=== PATIENT | female | born 1980 | race Caucasian/White ===

== ENCOUNTER 2019-01-14 08:02 | Outpatient (CLI) | payer OTHER, SELFPAY ==
[2019-01-14 10:09] LABS: Calculated LDL 129 mg/dL; Cholesterol 202 mg/dL (50-200); HDL Cholesterol 52 mg/dL (40-60); TSH (W/Ref FT4) 5.28 uIU/mL (0.358-3.74); Triglyceride 105 mg/dL (30-150)
[2019-01-14 12:11] LABS: FREE T4 0.96 ng/dL (0.76-1.46)
== END 2019-01-14 08:22 ==
PROVIDERS: PCP Family Medicine; Visit Provider Family Medicine
DX: E03.9 Hypothyroidism, unspecified (principal); R74.8 Abnormal levels of other serum enzymes
CPT/HCPCS: 36415; 80061; 83721; 84439; 84443

== ENCOUNTER 2019-03-04 15:10 | Outpatient (CLI) | payer OTHER, SELFPAY | END 2019-03-04 15:30 | PROVIDERS: PCP Family Medicine; Visit Provider Family Medicine | DX: E03.9 Hypothyroidism, unspecified (principal) | CPT/HCPCS: 36415; 84443 ==

== ENCOUNTER 2020-07-03 22:09 | Outpatient (REF) | payer OTHER, SELFPAY ==
[2020-07-04 20:40] LABS: COVID-19 RT-PCR UVMMC Result Negative (Negative)
== END 2020-07-03 22:29 ==
LOC: LBN 22:09
PROVIDERS: PCP Family Medicine; Visit Provider Physician Assistant
DX: J02.9 Acute pharyngitis, unspecified (principal)
CPT/HCPCS: U0003; 87070

== ENCOUNTER 2020-12-28 16:06 | Outpatient (REF) | payer OTHER, SELFPAY ==
--- NOTE | 2020-12-28 14:50 | PAPFT_PTH ---
PATIENT: Carol Echols LOC: [facility] U#:[id number] AGE/SX: 40/F ROOM: RE12/28/[address]: Kelley Porter MD : [id number] BED: DIS: 12/28/2020 SPEC #: [id number] RECD: 12/28/20 18:32 STATUS: DEEPALI REEnriqueta #: [id number] MDAISON: 12/28/20 14:[address]: Kelley Porter DEPT: [facility] Cytology RECD BY: Rosie Robb ENTERED: 12/28/20 18:32 SP TYPE: PAPFT KARLY DR: Johnny Nguyen MD Tissues: 1 - CX/ENDOCX FOR PAP SMEARS Procedures: PAP THIN PREP/[facility] Screening HPV DNA PROBE Comments: [id number]
[2021-01-05 12:50] LABS: HSV 1 DNA Result Negative (Negative); HSV 2 DNA Result Negative (Negative)
== END 2020-12-28 16:07 | disposition home or self-care (01) ==
LOC: LBN 16:06
PROVIDERS: PCP Family Medicine; Visit Provider Obstetrics & Gynecology
DX: Z12.4 Encounter for screening for malignant neoplasm of cervix (principal); Z11.51 Encounter for screening for human papillomavirus (HPV); N90.89 Other specified noninflammatory disorders of vulva and perineum
CPT/HCPCS: 87529; 88142; 87624

== ENCOUNTER 2021-01-02 04:10 | Outpatient (CLI) | payer OTHER, SELFPAY ==
[2021-01-04 11:10] LABS: HSV Type 1 Ab, IgG Negative (Negative); HSV Type 2 Ab, IgG Negative (Negative)
== END 2021-01-02 04:11 | disposition home or self-care (01) ==
LOC: LBO 04:10
PROVIDERS: PCP Family Medicine; Visit Provider Obstetrics & Gynecology
DX: N90.89 Other specified noninflammatory disorders of vulva and perineum (principal)
CPT/HCPCS: 36415; 86695; 86696

== ENCOUNTER 2021-01-18 02:21 | Outpatient (CLI) | payer OTHER, SELFPAY ==
[2021-01-18 09:49] LABS: TSH (W/Ref FT4) 0.69 uIU/mL (0.36-3.74)
== END 2021-01-18 02:22 | disposition home or self-care (01) ==
LOC: LBO 02:21
PROVIDERS: PCP Family Medicine; Visit Provider Family Medicine
DX: E03.9 Hypothyroidism, unspecified (principal)
CPT/HCPCS: 36415; 84443

== ENCOUNTER 2021-05-27 23:15 | Outpatient (REF) | payer OTHER, SELFPAY ==
[2021-05-27 10:08] LABS: Source Nasal/Nares
[2021-05-27 11:02] LABS: COVID-19 PCR Negative (Negative)
== END 2021-05-27 23:16 | disposition home or self-care (01) ==
LOC: LBN 23:15
PROVIDERS: PCP Family Medicine; Visit Provider Nurse Practitioner Family
DX: Z20.822 Contact with and (suspected) exposure to COVID-19 (principal); R09.89 Other specified symptoms and signs involving the circulatory and respiratory systems
CPT/HCPCS: 87635

== ENCOUNTER 2021-09-10 09:39 | Outpatient (REF) | payer OTHER, SELFPAY ==
[2021-09-10 09:55] LABS: Source Nasal/Nares
[2021-09-10 10:34] LABS: COVID-19 PCR Negative (Negative)
== END 2021-09-10 09:40 | disposition home or self-care (01) ==
LOC: LBN 09:39
PROVIDERS: PCP Family Medicine; Visit Provider Obstetrics & Gynecology
DX: Z20.822 Contact with and (suspected) exposure to COVID-19 (principal)
CPT/HCPCS: 87635

== ENCOUNTER 2021-10-01 18:20 | Outpatient (REF) | payer OTHER, SELFPAY ==
[2021-10-01 10:00] LABS: Source Nasal/Nares
[2021-10-01 10:38] LABS: COVID-19 PCR Negative (Negative)
== END 2021-10-01 18:21 | disposition home or self-care (01) ==
LOC: LBN 18:20
PROVIDERS: PCP Family Medicine; Visit Provider Obstetrics & Gynecology
DX: Z20.822 Contact with and (suspected) exposure to COVID-19 (principal)
CPT/HCPCS: 87635

== ENCOUNTER 2022-12-19 12:42 | Outpatient (CLI) | payer OTHER, SELFPAY ==
--- NOTE | 2022-12-19 09:27 | DI.RAD_ITS ---
Exam(s) XR TIB/FIB LT XR ANKLE LT COMPLETE EXAM: XR ANKLE LT COMPLETE CLINICAL HISTORY: evaluate pathology,lt lat ankle pain,m25.572 TECHNIQUE: 2D digital imaging was performed. Three views of the ankle. Two views of the leg. COMPARISON: CR XR TIB/FIB LT from 12/19/2022 FINDINGS: BONES: No acute fracture is present. No bony destructive lesion is seen. Tiny plantar calcaneal spu r. JOINTS:The ankle mortise is normally aligned. The knee is unremarkable as visualized. SOFT TISSUE: Swelling around the lateral malleolus. IMPRESSION: Soft tissue swelling around lateral malleolus. No evidence of fracture. DATA REPOSITORY: RADIATION DOSE DELIVERED:
== END 2022-12-19 13:02 ==
LOC: DI 12:49
PROVIDERS: PCP Family Medicine; Visit Provider Nurse Practitioner Family
DX: M25.572 Pain in left ankle and joints of left foot (principal); R22.42 Localized swelling, mass and lump, left lower limb
CPT/HCPCS: 73590; 73610

== ENCOUNTER 2023-01-01 09:37 | Outpatient (CLI) | payer OTHER, SELFPAY ==
--- NOTE | 2023-01-01 08:34 | DI.RAD_ITS ---
Exam(s) XR ANKLE LT 2V EXAM: XR ANKLE LT 2V CLINICAL HISTORY: LEFT ANKLE PAIN. TECHNIQUE: 2D digital imaging was performed. COMPARISON: Prior x-rays 12/19/2022 FINDINGS: Two views Again noted is prominent soft tissue swelling the lateral aspect of the ankle without evidence of obv ious fractures. Talar dome appears unremarkable. There is no obvious widening of the ankle mortise evident on the stress view. IMPRESSION: No widening of the ankle mortise evident on the stress view. No obvious fractures. DATA REPOSITORY: RADIATION DOSE DELIVERED:
== END 2023-01-01 09:38 | disposition home or self-care (01) ==
LOC: DIORS 09:38
PROVIDERS: PCP Family Medicine; Referring Provider Family Medicine; Visit Provider Student in an Organized Health Care Education/Training Program
DX: S99.912A Unspecified injury of left ankle, initial encounter (principal)
CPT/HCPCS: 73600

== ENCOUNTER 2023-01-30 11:47 | Outpatient (CLI) | payer OTHER, SELFPAY ==
--- NOTE | 2023-01-30 09:45 | DI.RAD_ITS ---
Exam(s) XR ANKLE LT COMPLETE EXAM: XR ANKLE LT COMPLETE CLINICAL HISTORY: LEFT ANKLE INJURY. TECHNIQUE: 2D digital imaging was performed. COMPARISON: CR XR ANKLE LT 2V from 01/01/2023 FINDINGS: Four views. There is persistent lateral soft tissue swelling. No evidence of fracture nor widening of the ankle mortise. Talar dome unremarkable. Small inferior calcaneal spur again noted. No osseous tarsal coa lition. No degenerative changes. No osteochondral defects. IMPRESSION: Lateral soft tissue swelling. No significant osseous findings nor significant radiographic change co mpared to 01/01/2023. DATA REPOSITORY: RADIATION DOSE DELIVERED:
== END 2023-01-30 11:48 | disposition home or self-care (01) ==
LOC: DIORS 11:47
PROVIDERS: PCP Family Medicine; Visit Provider Student in an Organized Health Care Education/Training Program
DX: S93.492D Sprain of other ligament of left ankle, subsequent encounter (principal); Z98.890 Other specified postprocedural states; M79.89 Other specified soft tissue disorders; X58.XXXD Exposure to other specified factors, subsequent encounter
CPT/HCPCS: 73610

== ENCOUNTER 2023-05-14 04:10 | Outpatient (CLI) | payer OTHER, SELFPAY ==
[2023-05-14 08:37] LABS: Calculated LDL 146 mg/dL (<100); Cholesterol 211 mg/dL (<200); Glucose 98 mg/dL (74-106); HDL Cholesterol 56 mg/dL (40-60); TSH (W/Ref FT4) 0.64 uIU/mL (0.36-3.74); Triglyceride 49 mg/dL (<150)
== END 2023-05-14 04:11 | disposition home or self-care (01) ==
PROVIDERS: PCP Family Medicine; Visit Provider Family Medicine
DX: R73.9 Hyperglycemia, unspecified (principal); E78.5 Hyperlipidemia, unspecified; E03.9 Hypothyroidism, unspecified
CPT/HCPCS: 36415; 80061; 82947; 84443

== ENCOUNTER → 2023-05-22 00:32 | Outpatient (CLI) | payer OTHER, SELFPAY ==
--- NOTE | 2023-05-22 08:00 | DI.MAMMO_ITS ---
Exam(s) MAMMO SCREENING EXAM: MAMMO SCREENING CLINICAL HISTORY: screening,Z12.39 TECHNIQUE: Mammograms were interpreted according to the usual protocol including computer analysis w [employer] CAD system, tomosynthesis and C-view imaging. COMPARISON: None. Baseline examination. FINDINGS: The breasts are composed of heterogeneously dense fibroglandular densities, Breast Density category C . No suspicious masses or suspicious microcalcifications are seen. No skin thickening or abnormal axillary lymph nodes are seen. IMPRESSION: BI-RADS Category 1, Negative mammogram. Yearly screening mammography is recommended. Breast Density Category C, heterogeneously Dense. The mammogram demonstrates the patient's breast tissue is dense. Dense breast tissue is very common a nd is not abnormal but dense breast tissue can make it harder to find cancer on a mammogram. Also, de nse breast tissue may increase breast cancer risk. This information about the result of the mammogram report was provided to the patient to raise their awareness. Use this report when you speak with the patient about their risks for breast cancer, which includes their family history. At that time, you may recommend additional screening tests (Ultrasound or MRI) as they might be useful based on their r isk. A negative radiographic report should not delay biopsy if a dominant or clinically suspicious mass is present. Up to ten percent of cancers are not identified on mammography. A negative report may reinforce clinical impression. Adenosis and dense breasts may obscure an underlying neoplasm. False positive reports average 6 to 10%.
== END ==
PROVIDERS: PCP Family Medicine; Visit Provider Family Medicine
DX: Z12.31 Encounter for screening mammogram for malignant neoplasm of breast (principal)
CPT/HCPCS: 77063; 77067

== ENCOUNTER 2024-05-27 00:24 | Outpatient (CLI) | payer OTHER, SELFPAY ==
--- NOTE | 2024-05-27 07:15 | DI.MAMMO_ITS ---
Exam(s) MAMMO SCREENING EXAM: MAMMO SCREENING CLINICAL HISTORY: screening,z12.39 TECHNIQUE: Bilateral full field digital CC and MLO mammographic images were obtained with 3D tomosyn thesis and utilizing computer aided detection (CAD). COMPARISON: Available for comparison. FINDINGS: Masses/Architectural Distortion: None seen. Microcalcifications: No suspicious pleomorphic-type are seen. Skin Thickening/Nipple Retraction: None. IMPRESSION: 1. No significant interval change with no specific features of malignancy noted. 2. Unless there is more urgent need, screening mammography is recommended, as per [employer] [employer] guidelines. BI-RADS Category 1 - Negative Breast Density - Category C - Heterogeneously dense Breast density category C or D implies that the patient has dense breast tissue. Dense breast tissue is very common and is not abnormal but dense breast tissue can make it harder to find cancer on a ma mmogram. Also, dense breast tissue may increase their breast cancer risk. This information about the result of the mammogram report was provided to the patient to raise their awareness. Use this report when you speak with the patient about their risks for breast cancer, which includes their family hist ory. At that time, you may recommend for more screening tests (Ultrasound or MRI) as they might be us eful based on their risk. A negative radiographic report should not delay biopsy if a dominant or clinically suspicious mass is present. Up to ten percent of cancers are not identified on mammography. A negative report may reinforce clinical impression. Adenosis and dense breasts may obscure an underlying neoplasm. False positive reports average 6 to 10%. Patient will receive a letter notifying them of these results.
== END 2024-05-27 00:44 ==
LOC: DI 00:25
PROVIDERS: PCP Family Medicine; Visit Provider Family Medicine
DX: Z12.31 Encounter for screening mammogram for malignant neoplasm of breast (principal); R92.333 Mammographic heterogeneous density, bilateral breasts
CPT/HCPCS: 77063; 77067

== ENCOUNTER 2024-06-13 02:42 | Outpatient (CLI) | payer OTHER, SELFPAY ==
[2024-06-13 08:35] LABS: Calculated LDL 115 mg/dL (<100); Cholesterol 182 mg/dL (<200); HDL Cholesterol 58 mg/dL (40-60); Triglyceride 48 mg/dL (<150)
== END 2024-06-13 02:43 | disposition home or self-care (01) ==
PROVIDERS: PCP Family Medicine; Visit Provider Family Medicine
DX: E78.5 Hyperlipidemia, unspecified (principal)
CPT/HCPCS: 36415; 80061

== ENCOUNTER 2024-08-26 00:59 | Outpatient (CLI) | payer OTHER, SELFPAY ==
--- NOTE | 2024-08-26 07:00 | DI.US_ITS ---
Exam(s) US PELVIS TRANSVAGINAL EXAM: US PELVIS TRANSVAGINAL CLINICAL HISTORY: right SIDED pelvic fullness,SWELLING, UNINTENDED weight loss TECHNIQUE: Transabdominal and transvaginal imaging was performed using standard protocol. COMPARISON: US [facility] OB ULTRASOUND from 10/20/2014 FINDINGS: Transabdominal images are limited due to nearly empty urinary bladder. UTERUS: Mildly retroflexed. 7.8 x 4.9 x 5.4 cm Endometrium: 3 mm. IUD appears to be in appropriate position. Myometrium: Unremarkable. scar. Cervix: Unremarkable. OVARIES: Right: Cyst or mass: None. Left: Cyst or mass: None. DOPPLER: Color: Symmetric and uniform flow to both ovaries. No hyperemia. CUL-DE-SAC: Free fluid: Small amount of free fluid. IMPRESSION: 1. Normal-appearing uterus with endometrial stripe within normal limits. IUD in place. 2. Unremarkable bilateral ovaries. DATA REPOSITORY:
--- NOTE | 2024-08-26 12:19 | DI.RAD_ITS ---
Exam(s) XR CHEST 2V PA LATERAL EXAM: XR CHEST 2V PA LATERAL CLINICAL HISTORY: UNINTENDED WT LOSS,R63.4 TECHNIQUE: 2D digital imaging was performed. Two views. COMPARISON: No exams were available for comparison FINDINGS: HEART: Normal size. Aorta: Not dilated. PULMONARY VASCULATURE: Normal. MEDIASTINUM: Unremarkable. LUNGS: Clear. PLEURAL SPACE: No pleural effusion or pneumothorax. BONE:Unremarkable for age. SOFT TISSUES: Unremarkable. IMPRESSION: No acute abnormality. DATA REPOSITORY: RADIATION DOSE DELIVERED:
== END 2024-08-26 01:19 ==
LOC: DI 00:59
PROVIDERS: PCP Family Medicine; Visit Provider Family Medicine
DX: R63.4 Abnormal weight loss (principal); R19.03 Right lower quadrant abdominal swelling, mass and lump
CPT/HCPCS: 71046; 76830; 76856

== ENCOUNTER 2024-08-26 13:51 | Outpatient (CLI) | payer OTHER, SELFPAY ==
[2024-08-26 12:30] LABS: Abs Immature Grans 0.02 10^3/uL (0.0-0.06); Absolute Basophil Count 0.04 10^3/uL (0.0-0.2); Absolute Eosinophil Count 0.27 10^3/uL (0.0-0.7); Absolute Lymphocyte Count 2.03 10^3/uL (1.2-3.4); Absolute Neutrophil Count 2.91 10^3/uL (1.2-6.7); Basophils % 0.7 %; Eosinophils % 4.8 %; HGB 13.8 g/dL (11.2-15.7); Immature Grans % 0.4 %; Lymphocytes % 35.8 %; MCH 30.7 pg (27.0-33.0); MCHC 33.7 % (32.0-36.0); MCV 91 fL (80-95); MPV 11.9 fL (8.0-11.0); Monocytes % 7.1 %; Neutrophils % 51.2 %; Platelet Count 179 10^3/uL (130-400); RDW 12.5 % (11.7-14.6); RDW-SD 41.7 fL; WBC 5.67 10^3/uL (4.4-10.8)
[2024-08-26 12:33] LABS: ESR 3 mm/hr (0-20)
[2024-08-26 13:47] LABS: ALT 22 U/L (14-59); AST 14 U/L (15-37); Albumin 4.1 g/dL (3.4-5.0); Alkaline Phosphatase 90 U/L (46-116); Anion Gap 5.5 mmol/L (3-11); BUN 14 mg/dL (7-18); Bilirubin, Total 0.72 mg/dL (0.2-1.0); CO2 28.5 mmol/L (21.0-32.0); CREATININE 0.9 mg/dL (0.55-1.02); Calcium 8.5 mg/dL (8.5-10.1); Chloride 105 mmol/L (98-107); Estimated GFR 81.86 (mL/min/1.73m2); Glucose 98 mg/dL (74-106); Sodium 139 mmol/L (136-145); TSH (W/Ref FT4) 0.34 uIU/mL (0.36-3.74); Total Protein 7.6 g/dL (6.4-8.2)
[2024-08-26 13:48] LABS: C-Reactive Protein < 0.50 mg/dL (<or=0.5)
[2024-08-26 14:04] LABS: FREE T4 1.17 ng/dL (0.76-1.46)
[2024-08-26 23:13] LABS: HIV-1/2 Ag & Ab Screen Negative (Negative)
[2024-08-26 23:14] LABS: Hepatitis C Ab w Rflx HCV PCR Negative (Negative)
== END 2024-08-26 13:52 | disposition home or self-care (01) ==
LOC: LBO 13:52
PROVIDERS: PCP Family Medicine; Visit Provider Family Medicine
DX: R63.4 Abnormal weight loss (principal); Z00.00 Encounter for general adult medical examination without abnormal findings; E03.9 Hypothyroidism, unspecified; Z11.4 Encounter for screening for human immunodeficiency virus [HIV]
CPT/HCPCS: 36415; 80053; 85652; 86803; 87389; 84439; 84443; 85025; 86140

== ENCOUNTER 2024-09-18 15:51 | Emergency (ER) | payer OTHER, SELFPAY ==
[2024-09-18 15:53] VITALS: BP 114/76; PULSE 79; TEMP 35.9; O2SAT 99
[2024-09-18 15:56] VITALS: BP 114/76; PULSE 79; TEMP 35.9; O2SAT 99
--- NOTE | 2024-09-18 16:15 | DI.CT_ITS ---
Exam(s) CT NECK WO EXAM: CT NECK WO INDICATION: swelling to L side of palate, ?abscess, + strep. COMPARISON: No exams were available for comparison TECHNIQUE: FINDINGS: VISUALIZED PARANASAL SINUSES: There is significant mucosal thickening in both maxillary sinuses, not associated with fluid levels on the left side. Small amount of fluid on the right. There is no bone dehiscence. Adjacent ethmoidal air cells and nasal passages are clear. Deviation of the nasal sept um towards the left side and left-sided nasal septal spur, nonobstructive. Sphenoid and frontal sinu ses are clear. There are no mastoid air cell effusions nor fluid in the middle ear cavities. NASOPHARYNX: Unremarkable ORODENTAL: No Rima apical dental lucencies. TM joints appear unremarkable. OROPHARYNX: Uvula is midline. No obvious tonsillar abscesses, realizing limitations of a noninfused study. No evidence of significant retropharyngeal soft tissue swelling. HYPOPHARYNX: Slight asymmetry in the appearance of the vallecular lie, probably the normal limits. E piglottis unremarkable. VOCAL CORDS: Unremarkable. No masses evident. Subglottic airway appears unremarkable. THYROID GLAND: Unremarkable. Normal size and no obvious nodules. SALIVARY GLANDS: Unremarkable. No significant findings in the parotid and submandibular glands. How ever, there is some asymmetric left-sided sub platysmal fat streaking subjacent to the left parotid g land and lateral to the ipsilateral submandibular gland. No calculi evident. No distinct masses. N o abnormalities in the subcutaneous fat at this level. No evidence of puncture wound nor radiopaque foreign body LYMPH NODES: There is slightly enlarged lymph nodes in the left side of the neck. Also left supracla vicular region. OTHER: Cervical vertebrae appear unremarkable. No disc space narrowing. No facet arthropathy. No l isthesis. Bone density normal. No osseous lesions VISUALIZED LUNG APICES: No significant findings. IMPRESSION: 1. There is abnormal streaking in the sub platysmal fat on the left side adjacent to the inferior as pect of the left parotid gland and lateral to the left submandibular gland. There is no distinct dis cernible abscess, realizing the limitations of a noninfused study. There are no salivary gland calculi evident. 2. There is mild adenopathy in left side of the neck and left supraclavicular region. 3. Chronic-type mucosal thickening in both maxillary sinuses. No distinct fluid levels. No bone de hiscence. The frontal and sphenoid sinuses are clear as are the ethmoidal air cells. There are no m astoid effusions. RADIATION DOSE DELIVERED: 334.47mGy.cm Total DLP DATA REPOSITORY: All CT scans at this facility are submitted to the National Radiology Data Registry (NRDR) Dose Index Registry (DIR) with the [employer] ([employer]). RADIATION OPTIMIZATION: All CT scans at this facility use at least one of these dose optimization te chniques: automated exposure control; mA and/or kV adjustment per patient size (includes targeted exa ms where dose is matched to clinical indication); or iterative reconstruction.
--- NOTE | 2024-09-18 16:17 | W.ED.GENAD ---
Discharge Plan Disposition Patient Disposition: Home Condition: Good Discharge Details Clinical Impression: Acute tonsillitis Primary Care Provider: Johnny Nguyen ED Provider: Lala Ventura Home Meds and New Rx's Prescriptions: New amoxicillin-pot clavulanate 875-125 mg tablet 1 tab PO BID Qty: 20 0RF Magic Mouthwash See Rx Instructions .ROUTE .COMPLEX Qty: 120 0RF Rx Instructions: 1 part diphenhydramine 12.5 mg per 5 mL elixir, 1 part Maalox (do not substitute Kaopectate), 1 part 2% viscous lidocaine 2% viscous lidocaine. Quantity: 120 mL. Sig: Swish, gargle, and spit one to two teaspoonsful (5-10 mL) every four to six hours as needed. Shake well before using. prednisone 20 mg tablet 60 mg PO DAILY 3 Days Qty: 9 0RF Continued metronidazole [Metrogel] 1 % gel 1 applic TP BID Qty: 60 2RF levothyroxine [Synthroid] 112 mcg tablet 112 mcg PO DAILY Qty: 90 3RF cholecalciferol (vitamin D3) 2,000 UNIT tablet 2,000 unit PO DAILY Patient Comments: 03/20/17 hold during summer. si cyclosporine [Restasis] 0.05 % dropperette 1 drp ophthalmic (eye) Q12H Qty: 60 11RF Discontinued penicillin V potassium 500 mg tablet 500 mg PO BID 10 Days Qty: 20 0RF Discharge Instructions Additional Instructions: Please call [facility] first thing in the morning to schedule a follow up appointment for further evaluation/management of your strep throat/tonsillitis. I have placed a referral. Stop taking the penicillin- this is being switched to Augmentin. Please take the full course as prescribed. Steroids have been prescribed to help with swelling/inflammation. For comfort you may use the magic mouthwash (this may help prior to eating or drinking). Stay well hydrated, drinking plenty of fluids throughout the day. You may continue to use tylenol and ibuprofen alternating. Return to emergency care if you develop new difficulty swallowing, muffled voice, worsening swelling on one side of your neck, stridor/difficulty breathing, are unable to stay hydrated, or if you are very worried and would like to be rechecked again immediately. Referrals: [facility] [Provider Group] Discharge Data Discharge Date/Time-TO BE ENTERED AT DEPARTURE: 09/18/24 18:43 HPI General Date/Time Provider Initiated Documentation: 09/18/24 15:55. HPI Narrative: Carol is a 44 year old female who presents to the emergency department today for evaluation of strep throat not responding to treatment. She reports that symptoms started on , 4 days ago. [place] was [place] able to seek care until yesterday. She was started on penicillin, but is concerned because she has had persistent/worsening swelling to the left side of her neck, difficulty opening her mouth, and swelling to the soft palate on the left side. Has had general headache and chills, but no recorded fevers, difficulty swallowing/handling secretions, stridor, change in vision or hearing. She does have a history of frequent strep infections occurring annually since , but no history of antibiotic resistance. Has been using Tylenol and ibuprofen alternating every 3 hours. No other related significant past medical history. Physical exam remarkable for swelling to soft palate left side with mild uvular deviation, anterior cervical lymph node swelling L>R, and mild trismus. No intraoral swelling noted. Clear voice. Full painless range of motion to neck. No tachycardia noted. Easy work of breathing, lung sounds clear bilaterally. D/dx includes but is not limited to: Peritonsillar abscess, retropharyngeal abscess, soft tissue edema related to strep infection, extension of infection into deep space No concern for sepsis at this time, patient does not meet SIRS criteria. No red flags concerning for acute airway compromise at this time. As patient has history of anaphylaxis to IV contrast, noncontrast CT obtained. CT neck without contrast performed, as patient has history of anaphylaxis to IV contrast. No definitive masses or fluid collections noted; there is a small amount of Edema within the soft tissues of the left oropharynx and lymphadenopathy. Will broaden antibiotics and give steroids for swelling. While in the emergency department, Carol received first dose of Augmentin and prednisone. Reviewed discharge instructions with patient, including symptomatic management, importance of f/u with ENT, and red flags indicating need for return to emergency care. ENT referral placed by residential door unit installer. Related Data Home Medications ?Medication ?Instructions ?Recorded ?Confirmed cholecalciferol (vitamin D3) 50 2,000 unit PO DAILY 04/14/14 09/18/24 mcg (2,000 unit) tablet metronidazole 1 % topical gel 1 applic topical BID #60 grams 05/06/23 09/18/24 (Metrogel) levothyroxine 112 mcg tablet 112 mcg PO DAILY #90 tab-caps 08/11/24 09/18/24 (Synthroid) cyclosporine 0.05 % eye drops in a 1 drp ophthalmic (eye) Q12H #60 ea 08/12/24 09/18/24 dropperette (Restasis) Magic Mouthwash See Rx Instructions .Route 09/18/24 .COMPLEX #120 mL amoxicillin 875 mg-potassium 1 tab PO BID #20 tabs 09/18/24 clavulanate 125 mg tablet prednisone 20 mg tablet 60 mg (3 x 20 mg) PO DAILY 3 days 09/18/24 #9 tabs Previous Rx's ?Medication ?Instructions ?Recorded metronidazole 1 % topical gel 1 applic topical BID #60 grams 05/06/23 (Metrogel) levothyroxine 112 mcg tablet 112 mcg PO DAILY #90 tab-caps 08/11/24 (Synthroid) cyclosporine 0.05 % eye drops in a 1 drp ophthalmic (eye) Q12H #60 ea 08/12/24 dropperette (Restasis) Magic Mouthwash See Rx Instructions .Route 09/18/24 .COMPLEX #120 mL amoxicillin 875 mg-potassium 1 tab PO BID #20 tabs 09/18/24 clavulanate 125 mg tablet prednisone 20 mg tablet 60 mg (3 x 20 mg) PO DAILY 3 days 09/18/24 #9 tabs Allergies Allergy/AdvReac Type Severity Reaction Status Date / Time Iodinated Contrast Media Allergy Severe Anaphylaxsi Verified 09/18/24 15:55 (Iodinated Contrast- Oral s and IV Dye) General Stated Complaint: Sorethroat NATALIE: 3 Review of Systems Narrative: see HPI Exam Const General: cooperative, healthy appearing, comfortable, no acute distress, well developed and well groomed Nutritional Appearance: average body habitus and well nourished Orientation: alert and oriented x3 HENMT Head: normal to inspection, normocephalic and atraumatic General nose exam: external nose normal Face and sinus: normal facial exam Mouth: oral mucosae normal, lip normal, tongue normal and moist mucous membranes Teeth and gingiva: dentition normal Throat: posterior oropharynx abnormal edema (L sided edema to soft palate) and uvula laterally displaced (slight deviation to the R side) Neck Neck: trachea midline, supple and lymphadenopathy (L>R cervical) Resp Effort & Inspection: normal respiratory effort and able to speak in complete sentences Auscultation: clear to auscultation bilaterally Cardio Rate: regular rate Rhythm: regular rhythm Neuro General: patient alert, patient oriented x3, tone normal and moves all extremities Cognition: normal cognition Speech: speech normal Course Vital Signs Vital signs: Vital Signs Temperature 35.9 C L 09/18/24 15:53 Pulse 79 09/18/24 15:53 Blood Pressure 114/76 09/18/24 15:53 Pulse Oximetry 99 09/18/24 15:53 Temperature 35.9 C L 09/18/24 15:56 Temperature Source Temporal Artery Scan 09/18/24 15:56 Pulse 79 09/18/24 15:56 Blood Pressure 114/76 09/18/24 15:56 Pulse Oximetry 99 09/18/24 15:56 Medical Decision Making Imaging Data Radiologic Study: Radiologist's impression: Clinical indication: Other: Swelling to L side of palate, ? abscess, + strep TECHNIQUE: Imaging protocol: Computed tomography of the neck without contrast. COMPARISON: CR XR CHEST 2V PA LATERAL 08/26/2024 12:12 PM FINDINGS: Brain: There is no evidence of acute intracranial injury or other pathologic process. Orbital cavities: There is no evidence of retro-bulbar hemorrhage. There is no evidence of globe or lens injury. The orbits are normal without evidence of fracture. The bony cranium shows no evidence of injury or other acute pathologic processes. Paranasal sinuses: Mucoperiosteal thickening consistent with chronic sinusitis. No air-fluid levels to suggest evidence of acute sinusitis. Mastoid air cells: The mastoid aircells are normal. Salivary glands: No enlargement. No inflammation. There are no masses or fluid collections. Pharynx: There are no masses or organized fluid collections. Prominent soft tissue present within the left oropharynx. Consider tonsillitis. The lack of intravenous contrast limits the identification of organized abscesses although no definitive abscess is identified. There are no masses or fluid collections. Larynx: There are no masses or fluid collections. Thyroid: The thyroid gland is normal. Trachea: No tracheal stenosis identified. There are no masses or fluid collections. Lungs: The lung apices are normal without evidence of consolidation or masses. Lymph nodes: There is mild to moderate left zone 2 and zone 3 lymphadenopathy. Vasculature: No evidence of arterial occlusive or aneurysmal disease. No evidence of venoocclusive disease. Bones/joints: The alignment of the cervical spine is normal. No evidence of fracture. Soft tissues: There are no masses or fluid collections. Small amount of edema in soft tissue swelling present within the left perimandibular soft tissues best demonstrated on images 111 through 120 series 4 and image 40 series 7. Soft tissues of the upper chest, supraclavicular and paraspinal regions are normal. IMPRESSION: 1. There are no definitive masses or organized fluid collections. Prominent soft tissues present within the left oropharynx. Consider tonsillitis. The lack of intravenous contrast limits the identification of organized abscesses although no definitive abscess is identified. 2. There is mild to moderate left zone 2 and zone 3 lymphadenopathy. 3. Small amount of edema in soft tissue swelling present within the left perimandibular soft tissues best demonstrated on images 111 through 120 series 4 and image 40 series 7. 4. There is mild to moderate left zone 2 and zone 3 lymphadenopathy. Quality:SDOH Health Related Social Needs: No Data to Display PFSH All Active Problems (Updated 09/18/24 @ 18:14 by Lala Dumont) Acute tonsillitis (Acute) Unintended weight loss (Acute) Chronic pain of right knee (Acute) High ankle sprain of left lower extremity (Acute) IUD (intrauterine device) in place (Acute) 04/2019. Mirena inserted for non-contraceptive benefits. Thygeson's superficial punctate keratitis (Acute) Ocular rosacea (Acute) Vulvar fissure (Acute) Vulvar lesion (Acute) Pharyngitis (Acute) Chronic idiopathic urticaria (Acute 11/27/17) Hypothyroid (Acute 04/14/14) post thyroiditis 201201/01/15 dose Synthroid 112mcg M-F and 224mcg S-S. 2015 levothyroxine 112mcg PO daily Rosacea (Acute 02/01/16) Surgical History section 2011 [facility]. [facility] [place]. 7-11. Breech. Unsuccessful ECV. C section times 2 Misc surgeries rgt ankle surgery/scope (bone spur/post tibia fx 2003 rgt knee 2011 Family History (Updated 08/19/24 @ 13:43 by Winsome Ames MD) Mother Thyroid disease Hereditary spastic paraplegia Paternal Grandfather Heart disease Hyperlipidemia Colon cancer Hypertension Maternal Grandfather Hyperlipidemia Thyroid disease Hypertension Heart disease Cancer Hereditary spastic paraplegia Maternal Grandmother Hyperlipidemia Thyroid disease Alzheimer's type dementia with late onset without behavioral disturbance Sarcoma of bone Sister Thyroid disease Father No problems noted. Sister No problems noted. Brother Thyroid disease Paternal Grandmother Hyperlipidemia Hypertension Son No problems noted. Maternal family History Neoplasm Aunt Thyroid disease Cousins,Aunts and Uncles Daughter No problems noted. Social History Smoking/Tobacco Use Status: Never Second Hand Exposure: No Smoking risk assessment performed?: Yes Alcohol Intake: current Alcohol Intake frequency: a few times a month Alcohol type: beer and wine Drug use: Never Substance use type: does not use Adopted: No Caregiver/Support person: No Foster care: No Household members: spouse and children Housing: house Number of Children: 2 Communication Needs: None Education Level: master's degree Do you need help understanding health information?: Never current occupation: Physician Pets and animals: Yes Pets and animals: dog(s) and farm animals Sexually active: Yes Do you think of yourself as: straight/heterosexual Current gender identity: female What is your relationship status?: How often do you talk on the phone with friends or family?: twice per week How often do you get together with friends or relatives?: once per week Do you belong to any clubs or organized social groups?: yes Panel score (0-1 are the most socially isolated patients): 3 What type of physical activity do you participate in: bicycling and weight lifting Duration: 45-60 minutes/day Frequency: 5-6 times per week Lashawn/Anabaptism: No preference Special lashawn needs: No Agree to transfusion: Yes Seatbelt use: always Helmet use: Yes Helmet use: always Drive intox or ride w/intox bookmobile driver: No Working smoke detector in home: Yes Carbon monox detector in home: Yes Firearms in home: No Do you feel safe at home: Yes Do you feel safe in your relationship?: Yes Female Reproductive History Menstrual control method: permanent sterilization History History 2 Para 2 Hx # Term Pregnancies Multiple births Hx # Pregnancies Ectopic pregnancies AB induced Hx Number of Living Children AB spontaneous Past Pregnancies Del. Date GA/Weeks # Preg Succ Route Wgt Sex Labor Lgth Anesthesia Location Prov Complic 06/22/11 40 No 3486.991 g Male 05/18/15 40 No Female [facility]. [facility] Delivery Date: 06/22/11 Last Updated by: Tasha Reeves M.D. [place]. Breech, unsuccessful ECV. [facility] Delivery Date: 05/18/15 Last Updated by: Tasha Reeves M.D. elective repeat. [facility]
[2024-09-18 17:04] VITALS: BP 108/67; PULSE 60; RESP 18; O2SAT 100
--- NOTE | 2024-09-18 17:54 | DI.VRAD_ITS ---
PROCEDURE INFORMATION: Exam: CT Neck Without Contrast Exam date and time: 09/18/2024 4:33 PM Age: 44 years old Clinical indication: Other: Swelling to L side of palate, ? abscess, + strep TECHNIQUE: Imaging protocol: Computed tomography of the neck without contrast. COMPARISON: CR XR CHEST 2V PA LATERAL 08/26/2024 12:12 PM FINDINGS: Brain: There is no evidence of acute intracranial injury or other pathologic process. Orbital cavities: There is no evidence of retro-bulbar hemorrhage. There is no evidence of globe or lens injury. The orbits are normal without evidence of fracture. The bony cranium shows no evidence of injury or other acute pathologic processes. Paranasal sinuses: Mucoperiosteal thickening consistent with chronic sinusitis. No air-fluid levels to suggest evidence of acute sinusitis. Mastoid air cells: The mastoid aircells are normal. Salivary glands: No enlargement. No inflammation. There are no masses or fluid collections. Pharynx: There are no masses or organized fluid collections. Prominent soft tissue present within the left oropharynx. Consider tonsillitis. The lack of intravenous contrast limits the identification of organized abscesses although no definitive abscess is identified. There are no masses or fluid collections. Larynx: There are no masses or fluid collections. Thyroid: The thyroid gland is normal. Trachea: No tracheal stenosis identified. There are no masses or fluid collections. Lungs: The lung apices are normal without evidence of consolidation or masses. Lymph nodes: There is mild to moderate left zone 2 and zone 3 lymphadenopathy. Vasculature: No evidence of arterial occlusive or aneurysmal disease. No evidence of venoocclusive disease. Bones/joints: The alignment of the cervical spine is normal. No evidence of fracture. Soft tissues: There are no masses or fluid collections. Small amount of edema in soft tissue swelling present within the left perimandibular soft tissues best demonstrated on images 111 through 120 series 4 and image 40 series 7. Soft tissues of the upper chest, supraclavicular and paraspinal regions are normal. IMPRESSION: 1. There are no definitive masses or organized fluid collections. Prominent soft tissues present within the left oropharynx. Consider tonsillitis. The lack of intravenous contrast limits the identification of organized abscesses although no definitive abscess is identified. 2. There is mild to moderate left zone 2 and zone 3 lymphadenopathy. 3. Small amount of edema in soft tissue swelling present within the left perimandibular soft tissues best demonstrated on images 111 through 120 series 4 and image 40 series 7. 4. There is mild to moderate left zone 2 and zone 3 lymphadenopathy. Dictated and Authenticated by: Hector Dalton MD. Orderin Carlos Eduardo Reeves MD
[2024-09-18] MEDS: predniSONE 20 MG TAB 60 MG PO (18:36)
[2024-09-18] MEDS: Amoxicillin 875/Clav. 125 TAB PO (18:36)
== END 2024-09-18 18:43 | disposition home or self-care (01) ==
PROVIDERS: Emergency Provider Nurse Practitioner Family; PCP Family Medicine
DX: J03.90 Acute tonsillitis, unspecified (principal)
CPT/HCPCS: 99284; 70490; 99283; J7512

== ENCOUNTER 2024-11-13 06:20 | Emergency (ER) | payer OTHER, SELFPAY ==
[2024-11-13 06:26] VITALS: BP 135/63; PULSE 16; RESP 18; TEMP 36.3; O2SAT 99
--- NOTE | 2024-11-13 07:00 | ED.GENADUL_ITS ---
Discharge Plan Disposition Patient Disposition: Home Discharge Details Clinical Impression: Acute otitis media, bilateral Primary Care Provider: Johnny Nguyen ED Provider: Venu Deleon Home Meds and New Rx's Prescriptions: New amoxicillin-pot clavulanate 875-125 mg tablet 1 tab PO BID 7 Days Qty: 14 0RF Continued metronidazole [Metrogel] 1 % gel 1 applic TP BID Qty: 60 2RF levothyroxine [Synthroid] 112 mcg tablet 112 mcg PO DAILY Qty: 90 3RF cholecalciferol (vitamin D3) 2,000 UNIT tablet 2,000 unit PO DAILY Patient Comments: 03/20/17 hold during summer. si cyclosporine [Restasis] 0.05 % dropperette 1 drp ophthalmic (eye) Q12H Qty: 60 11RF Discontinued amoxicillin-pot clavulanate 875-125 mg tablet 1 tab PO BID Qty: 20 0RF Discharge Instructions Instructions: Ear Infections in Adults (DC) Additional Instructions: You are seen in the emergency department for your ear pain. You are found to h ave bilateral acute otitis media for which you are receiving amoxicillin clavulanic acid which she should take as directed. As we discussed if you develop difficulty ranging her neck fevers or worsening sore throat please return to the emergency department. Otherwise please follow-up with your primary care provider. For your pain please take medications as follows: 1. Take acetaminophen (Tylenol), 1,000 mg (two 500 mg tabs) every 6 hours [2. Take ibuprofen (Advil), 400 mg every 6 hours.] HPI General Date/Time Provider Initiated Documentation: 11/13/24 07:00 . HPI Narrative: [facility] This is a quite well-appearing afebrile and not tachycardic 44-year-old female with bilateral ear pain and exam consistent with acute otitis media for which she will receive treatment with amoxicillin clavulanic acid along with discharge and empiric trial of expectant outpatient management. No pain out of proportion to suggest necrotizing soft tissue infection. Good range of motion in neck so I am not suspicious for retropharyngeal abscess. No nuchal rigidity making my suspicion low for meningitis. Not altered to suggest encephalitis. Patient does have some mild posterior oropharynx erythema however her uvula is midline making my suspicion low for peritonsillar abscess. She is nontoxic-appearing to suggest bacterial tracheitis. She is handling her secretions making my suspicion low for retropharyngeal abscess. I considered whether or not to swab the patient for strep given her recent infection. Given that she has only mild sore throat and only mild erythema we will defer strep swab given empiric strep coverage with amoxicillin clavulanic acid. We also discussed whether or not to administer steroids. Given no significant posterior oropharynx erythema I felt that the risks of steroids with the benefits. Furthermore, patient reportedly has had a rash after prednisone last month. I considered whether or not to treat the patient for sinusitis. She did have some sinus symptoms last week however has not had a clear double worsening to suggest sinusitis. Furthermore she has not had persistent greater than 10 days and no history of diabetes. She has no proptosis to suggest mastoiditis and no mastoid tenderness. We discussed that if her pain worsens if she developed any drainage from her ears or if she had any difficulty swallowing that she should return to the emergency department. She understood her return indications and was discharged with an empiric trial of expectant outpatient management. HPI This is a 44-year-old female arriving to the emergency department via private vehicle in setting of ear pain bilaterally. Patient notes that last week she had some drainage from her left maxillary sinus. She notes that last week that one of her children was sick. She said that 3 days ago she developed a sore throat and some ear pain. She has been attempting treatment with saline rinses and fluticasone spray. She notes that she could not sleep last night and has developed muffled hearing. She denies fevers nausea vomiting shortness of breath chest pain abdominal pain and dysuria. Exam General: Well-appearing in no acute distress speaking in complete sentences. Head: Normocephalic, atraumatic. Eye: Extraocular eye movements intact. No conjunctival injection. No scleral icterus. Ear, nose, mouth, throat: Bilateral erythematous bulging TMs. No signs of perforation. No proptosis. Mild posterior oropharynx erythema. Uvula midline. Normal voice, handling secretions normally. Neck: Trachea midline. No nuchal rigidity. Cardiovascular: Well-perfused distal extremities. Respiratory: Nonlabored respiration. Gastrointestinal: Nondistended abdomen. Musculoskeletal: No edema. Moving all 4 extremities spontaneously. Skin: Normal for age and race, grossly normal temperature and turgor. No acute rash. Neurologic: Alert and appropriate, no apparent acute deficits. Related Data Home Medications ?Medication ?Instructions ?Recorded ?Confirmed cholecalciferol (vitamin D3) 50 2,000 unit PO DAILY 04/14/14 09/26/24 mcg (2,000 unit) tablet metronidazole 1 % topical gel 1 applic topical BID #60 grams 05/06/23 09/26/24 (Metrogel) levothyroxine 112 mcg tablet 112 mcg PO DAILY #90 tab-caps 08/11/24 09/26/24 (Synthroid) cyclosporine 0.05 % eye drops in a 1 drp ophthalmic (eye) Q12H #60 ea 08/12/24 09/26/24 dropperette (Restasis) amoxicillin 875 mg-potassium 1 tab PO BID 7 days #14 tabs 11/13/24 clavulanate 125 mg tablet Previous Rx's ?Medication ?Instructions ?Recorded metronidazole 1 % topical gel 1 applic topical BID #60 grams 05/06/23 (Metrogel) levothyroxine 112 mcg tablet 112 mcg PO DAILY #90 tab-caps 08/11/24 (Synthroid) cyclosporine 0.05 % eye drops in a 1 drp ophthalmic (eye) Q12H #60 ea 08/12/24 dropperette (Restasis) amoxicillin 875 mg-potassium 1 tab PO BID 7 days #14 tabs 11/13/24 clavulanate 125 mg tablet Allergies Allergy/AdvReac Type Severity Reaction Status Date / Time Iodinated Contrast Media Allergy Severe Anaphylaxsi Verified 09/26/24 15:27 (Iodinated Contrast- Oral s and IV Dye) General Stated Complaint: EarProblem NATALIE: 4 Course Vital Signs Vital signs: Vital Signs Temperature 36.3 C L 11/13/24 06:26 Pulse 16 L 11/13/24 06:26 Respiratory Rate 18 11/13/24 06:26 Blood Pressure 135/63 11/13/24 06:26 Pulse Oximetry 99 11/13/24 06:26 Temperature 36.3 C L 11/13/24 06:26 Pulse 16 L 11/13/24 06:26 Respiratory Rate 18 11/13/24 06:26 Blood Pressure 135/63 11/13/24 06:26 Blood Pressure Position Sitting 11/13/24 06:26 Pulse Oximetry 99 11/13/24 06:26 Oxygen Delivery Method Room Air 11/13/24 06:26 Oxygen Flow Rate 0 11/13/24 06:26 Pain Level 9 11/13/24 06:26 Medical Decision Making Quality:SDOH Health Related Social Needs: No Data to Display PFSH All Active Problems (Updated 11/13/24 @ 07:18 by Venu Deleon MD) Acute otitis media, bilateral (Acute) Acute streptococcal tonsillitis (Acute) Unintended weight loss (Acute) Chronic pain of right knee (Acute) High ankle sprain of left lower extremity (Acute) IUD (intrauterine device) in place (Acute) 04/2019. Mirena inserted for non-contraceptive benefits. Thygeson's superficial punctate keratitis (Acute) Ocular rosacea (Acute) Vulvar fissure (Acute) Vulvar lesion (Acute) Pharyngitis (Acute) Chronic idiopathic urticaria (Acute 11/27/17) Hypothyroid (Acute 04/14/14) post thyroiditis 201201/01/15 dose Synthroid 112mcg M-F and 224mcg S-S. 2015 levothyroxine 112mcg PO daily Rosacea (Acute 02/01/16) Surgical History section 2012 PCD. Nader. Celio. 7-11. Breech. Unsuccessful ECV. C section times 2 Misc surgeries rgt ankle surgery/scope (bone spur/post tibia fx 2002 rgt knee 2011 Family History Mother Thyroid disease Hereditary spastic paraplegia Paternal Grandfather Heart disease Hyperlipidemia Colon cancer Hypertension Maternal Grandfather Hyperlipidemia Thyroid disease Hypertension Heart disease Cancer Hereditary spastic paraplegia Maternal Grandmother Hyperlipidemia Thyroid disease Alzheimer's type dementia with late onset without behavioral disturbance Sarcoma of bone Sister Thyroid disease Father No problems noted. Sister No problems noted. Brother Thyroid disease Paternal Grandmother Hyperlipidemia Hypertension Son No problems noted. Maternal family History Neoplasm Aunt Thyroid disease Cousins,Aunts and Uncles Daughter No problems noted. Social History Smoking/Tobacco Use Status: Never Second Hand Exposure: No Smoking risk assessment performed?: Yes Alcohol Intake: current Alcohol Intake frequency: a few times a month Alcohol type: beer and wine Drug use: Never Substance use type: does not use Adopted: No Caregiver/Support person: No Foster care: No Household members: spouse and children Housing: house Number of Children: 2 Communication Needs: None Education Level: master's degree Do you need help understanding health information?: Never current occupation: Physician Pets and animals: Yes Pets and animals: dog(s) and farm animals Sexually active: Yes Do you think of yourself as: straight/heterosexual Current gender identity: female What is your relationship status?: How often do you talk on the phone with friends or family?: twice per week How often do you get together with friends or relatives?: once per week Do you belong to any clubs or organized social groups?: yes Panel score (0-1 are the most socially isolated patients): 3 What type of physical activity do you participate in: bicycling and weight lifting Duration: 45-60 minutes/day Frequency: 5-6 times per week Lashawn/Samaritan: No preference Special lashawn needs: No Agree to transfusion: Yes Seatbelt use: always Helmet use: Yes Helmet use: always Drive intox or ride w/intox 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 Date GA/Weeks # Preg Succ Route Wgt Sex Labor Lgth Anesth esia Location [facility] 06/22/11 40 No 3486.991 g Male 05/18/15 40 No Female [facility]. [place] [facility] Delivery Date: 06/22/11 Last Updated by: Tasha Reeves M.D. [place]. Breech, unsuccessful ECV. Celio Delivery Date: 05/18/15 Last Updated by: Tasha Reeves M.D. elective repeat. Belle
== END 2024-11-13 07:23 | disposition home or self-care (01) ==
PROVIDERS: Emergency Provider Emergency Medicine; PCP Family Medicine
DX: H66.93 Otitis media, unspecified, bilateral (principal)
CPT/HCPCS: 99283 ×2

== ENCOUNTER 2024-11-21 15:14 | Outpatient (REF) | payer OTHER, SELFPAY | END 2024-11-21 15:15 | disposition home or self-care (01) | LOC: LBN 15:14 | PROVIDERS: PCP Family Medicine; Visit Provider Otolaryngology | DX: H66.012 Acute suppurative otitis media with spontaneous rupture of ear drum, left ear (principal); H66.91 Otitis media, unspecified, right ear | CPT/HCPCS: 87070; 87205 ==

== ENCOUNTER 2025-03-16 13:36 | Outpatient (REF) | payer OTHER, SELFPAY ==
--- NOTE | 2025-03-16 13:20 | PAPFT_PTH ---
PATIENT: Carol Echols LOC: [facility] U#:[id number] AGE/SX: 44/F ROOM: RE03/16/[address]: Felicity Martin DO : 1980 BED: DIS: 03/16/2025 SPEC #: [id number] RECD: 03/16/25 17:48 STATUS: DEEPALI REQ #: [id number] [place]: 03/16/25 13:[address]: Felicity Martin DEPT: [facility] Cytology RECD BY: Rosie Robb ENTERED: 03/16/25 17:49 SP TYPE: PAPFT OTHR DR: Johnny Nguyen MD Tissues: 1 - CX/ENDOCX FOR PAP SMEARS Procedures: PAP THIN PREP/UVM Screening HPV DNA PROBE Comments: [id number] (HPV 16 & 18/45)
== END 2025-03-16 13:37 | disposition home or self-care (01) ==
LOC: LBN 13:36
PROVIDERS: PCP Family Medicine; Visit Provider Obstetrics & Gynecology
DX: Z12.4 Encounter for screening for malignant neoplasm of cervix (principal)
CPT/HCPCS: 88142; 87624

== ENCOUNTER → 2025-06-02 02:57 | Outpatient (CLI) | payer OTHER, SELFPAY ==
--- NOTE | 2025-06-02 07:15 | DI.MAMMO_ITS ---
Exam(s) MAMMO SCREENING EXAM: MAMMO SCREENING CLINICAL HISTORY: screening,Z12.39. TECHNIQUE: Bilateral full field digital CC and MLO mammographic images were obtained with 3D tomosynthesis and utilizing computer aided detection (CAD). COMPARISON: Prior mammograms were reviewed. FINDINGS: There has been no significant change in the appearance and distribution of the fibroglandular tissue which is again noted be heterogeneously dense. There is a superficially located 7 x 5 mm asymmetric nodular density in the lateral aspect of the right breast seen on the the MLO view located 6 cm in from the nipple. This is unchanged from prior mammograms of 05/22/2023 and 05/27/2024. This has appearance of a probable benign intramammary lymph node There are no new spiculated masses nor new malignant appearing microcalcification groups. There is no significant architectural distortion nor skin thickening-retraction. IMPRESSION: Stable benign-appearing findings. No radiographic evidence of malignancy. BI-RADS Category 2 - Benign Findings Breast Density - Category C - The breast are heterogeneously dense, which may obscure small masses. Breast density Category C or D implies that the patient has dense breast tissue. Dense breast tissue can make it harder to find cancer on a mammogram. Dense breast tissue is also associated with an increased risk of breast cancer. This information about the result of the mammogram report was provided to the patient to raise their awareness. Use this report when you speak with the patient about their risks for breast cancer, which includes their family history. At that time, you may recommend additional screening tests (Ultrasound or MRI) as these tests may add significant information. A negative radiographic report should not delay biopsy if a dominant or clinically suspicious mass is present. Up to ten percent of cancers are not identified on mammography. A negative report may reinforce clinical impression. Adenosis and dense breasts may obscure an underlying neoplasm. False positive reports average 6 to 10%. Patient will receive a letter notifying them of these results.
== END ==
LOC: DI 02:57
PROVIDERS: PCP Family Medicine; Visit Provider Obstetrics & Gynecology
DX: Z12.31 Encounter for screening mammogram for malignant neoplasm of breast (principal); R92.323 Mammographic fibroglandular density, bilateral breasts
CPT/HCPCS: 77063; 77067